=== PATIENT | male | born 1940 | race Caucasian/White ===

== ENCOUNTER 2019-10-25 12:05 | Observation (INO) | payer MEDICARE, BC ==
[~2019-10-25] VITALS: Ht 182.9 cm; Wt 80.0 kg
[2019-10-25] MEDS ORDERED: TOPROL XL50 MG PO (12:23)
[2019-10-25] MEDS ORDERED: NORVASC5 MG PO (12:24)
[2019-10-25] MEDS ORDERED: ZANAFLEX2 M1 PO (12:24)
[2019-10-25 12:33] LABS: BASOPHILS 0 % (0-2); EOSINOPHILS 0 % (0-7); HEMATOCRIT 38.3 % (42.0-54.0); HEMOGLOBIN 12.8 g/dL (13.5-17.5); IMMATURE GRANULOCYTES 0.3 % (0-5); LYMPHOCYTES 10.3 % (15-50); MCH 30.7 pg (26.0-34.0); MCHC 33.4 g/dL (31.0-37.0); MCV 91.8 fL (80.0-100.0); MEAN PLATELET VOLUME 10.2 fL (7.4-10.4); MONOCYTES 7.9 % (2-11); NEUTROPHILS 81.5 % (40-80); RBC 4.17 10x6/uL (4.20-6.10); RDW 13.4 % (11.5-14.5)
[2019-10-25 12:35] LABS: PLATELET COUNT 252 10x3/uL (130-400)
[2019-10-25 12:45] LABS: APTT 28.4 SECONDS (22.8-39.4); INR 1.08 (0.85-1.17); PROTIME 13.9 SECONDS (11.6-15.0)
[2019-10-25 12:56] LABS: CALC OSMOLALITY 268 mosm/kg (275-300); CALCIUM 8.6 mg/dL (8.5-10.1); CARBON DIOXIDE 25.2 mmol/L (21.0-32.0); CHLORIDE - SERUM 101 mmol/L (98-107); GLUCOSE 106 mg/dL (74-106); SODIUM 133 mmol/L (136-145); UREA NITROGEN 22 mg/dL (7-18); eGFR NON AFRICAN AMERICAN 76 mL/min (90-120)
--- NOTE | 2019-10-25 12:58 | NUR ---
REPORT TO MARJ KEBEDE
[2019-10-25 13:03] LABS: ALBUMIN 3.7 g/dL (3.4-5.0); ALKALINE PHOSPHATASE 57 U/L (30-120); ALT (SGPT) 21 U/L (10-68); BILIRUBIN - TOTAL 0.31 mg/dL (0.2-1.3); CKMB 1.6 U/L (0.0-3.6); CREATINE KINASE 66 UL (21-232); MAGNESIUM - SERUM 2.1 mg/dL (1.8-2.4); PROTEIN - SERUM 6.8 g/dL (6.4-8.2); THYROID STIMULATING HORMONE 1.45 uIU/mL (0.36-3.74); TROPONIN-I < 0.017 ng/mL (0.000-0.060)
[2019-10-25 13:44] VITALS: BP 164/74
[2019-10-25 15:08] VITALS: BP 166/75
--- NOTE | 2019-10-25 15:59 | NUR ---
ULTRASOUND AT BEDSIDE
--- NOTE | 2019-10-25 16:50 | NUR ---
ATTEMPTED TO CALL REPORT ON HOLD FOR 20 MINUTES.
[2019-10-25 16:55] VITALS: BP 161/72
--- NOTE | 2019-10-25 18:45 | NUR ---
PATIENT IN BED WITH IV INTACT. NO COMPLAINTS OR SIGNS OF DISTRESS. FAMILY AT BEDSIDE. CALL LIGHT WITHIN REACH.
[2019-10-25 18:51] VITALS: BP 166/70; Ht 182.9 cm; Wt 80.0 kg
[2019-10-25 20:00] VITALS: BP 112/62
--- NOTE | 2019-10-25 20:00 | NUR ---
PATIENT RESTING IN BED WITH DAUGHTER AT BEDSIDE. NO S/S OF ACUTE DISTRESS. NO C/O AT THIS TIME. PATIENT HAS A LEFT FOREARM, SALINE LOC. IV IS PATENT WITHOUT REDNESS, SWELLING, OR TENDERNESS. PATIENT IS UP WITH ASSISTANCE AND CANE. CALL LIGHT WITHIN REACH. WILL CONTINUE TO MONITOR.
[2019-10-26] VITALS: BP 111/57
[2019-10-26 04:00] VITALS: BP 141/64
--- NOTE | 2019-10-26 04:37 | NUR ---
I have reviewed this patient and I concur with the Shift Assessment completed by the Licensed Practical Nurse today this shift.
[2019-10-26 04:58] LABS: BASOPHILS 0 % (0-2); EOSINOPHILS 0.1 % (0-7); HEMATOCRIT 35.7 % (42.0-54.0); HEMOGLOBIN 11.6 g/dL (13.5-17.5); IMMATURE GRANULOCYTES 0.5 % (0-5); LYMPHOCYTES 21.5 % (15-50); MCH 30.4 pg (26.0-34.0); MCHC 32.5 g/dL (31.0-37.0); MCV 93.5 fL (80.0-100.0); MEAN PLATELET VOLUME 10.1 fL (7.4-10.4); MONOCYTES 10.6 % (2-11); NEUTROPHILS 67.3 % (40-80); PLATELET COUNT 262 10x3/uL (130-400); RBC 3.82 10x6/uL (4.20-6.10); RDW 13.7 % (11.5-14.5)
[2019-10-26 05:00] LABS: WBC 8.3 10x3/uL (4.8-10.8)
[2019-10-26 05:22] LABS: ALBUMIN 3.1 g/dL (3.4-5.0); ALKALINE PHOSPHATASE 46 U/L (30-120); ALT (SGPT) 16 U/L (10-68); BILIRUBIN - TOTAL 0.24 mg/dL (0.2-1.3); CALC OSMOLALITY 271 mosm/kg (275-300); CALCIUM 7.9 mg/dL (8.5-10.1); CARBON DIOXIDE 27.6 mmol/L (21.0-32.0); CHLORIDE - SERUM 102 mmol/L (98-107); CKMB 0.9 U/L (0.0-3.6); CREATINE KINASE 41 UL (21-232); GLUCOSE 96 mg/dL (74-106); POTASSIUM - SERUM 4.2 mmol/L (3.5-5.1); PROTEIN - SERUM 5.7 g/dL (6.4-8.2); SODIUM 134 mmol/L (136-145); TROPONIN-I < 0.017 ng/mL (0.000-0.060); UREA NITROGEN 23 mg/dL (7-18); eGFR NON AFRICAN AMERICAN 76 mL/min (90-120)
--- NOTE | 2019-10-26 08:46 | NUR ---
URINE COLLECTED AND TAKEN TO LAB.
[2019-10-26 09:45] VITALS: BP 177/87
[2019-10-26 10:07] LABS: BILIRUBIN NEGATIVE (NEGATIVE); KETONE NEGATIVE (NEGATIVE); NITRITE NEGATIVE (NEGATIVE); UROBILINOGEN NORMAL (NORMAL)
[2019-10-26 12:15] LABS: CHOL - HDL RATIO 3.4 ratio (2.3-4.9); LDL-HDL RATIO 2.2 ratio (1.5-3.5)
[2019-10-26 12:54] VITALS: BP 148/71
[2019-10-26] MEDS ORDERED: LIPITOR20 MG PO (13:01)
[2019-10-26] MEDS ORDERED: ASPIRIN325 MG PO (13:01)
[2019-10-26] MEDS ORDERED: PROTONIX40 MG PO (14:38)
--- NOTE | 2019-10-26 16:14 | NUR ---
PATIENT RECIEVED DC INSTRUCTIONS. VERBALIZED UNDERSTANDING. NO QUESTIONS AT THIS. IV REMOVED WITH CATH TIP INTACT. TOLERATED WITH NO PAIN. FAMILY AT BEDSIDE. CALL LIGHT WITHIN REACH.
== END 2019-10-26 14:35 | disposition home or self-care (01) ==
LOC: D.ER 12:05 → D.MS 14:58 → OBSVTIME 14:58 → D.MS 14:58
PROVIDERS: Emergency Medicine; Family Medicine; ADMIT Family Medicine; ATTEND Family Medicine
DX: G45.9 Transient cerebral ischemic attack, unspecified (principal); R20.0 Anesthesia of skin; I10 Essential (primary) hypertension; E87.1 Hypo-osmolality and hyponatremia

== ENCOUNTER → 2020-04-29 18:21 | Outpatient (CLI) | payer MEDICARE, BC ==
[2019-10-25 18:51] VITALS: BMI 23.9
[~2020-04-29 18:21] MED LIST: ASPIRIN325 MG PO; LIPITOR20 MG PO; NORVASC5 MG PO; PROTONIX40 MG PO; TOPROL XL50 MG PO; ZANAFLEX2 M1 PO
[2020-04-29 22:18] LABS: CHOL - HDL RATIO 2.2 ratio (2.3-4.9)
== END | disposition home or self-care (01) ==
LOC: D.LABREF 18:21
PROVIDERS: ATTEND Nurse Practitioner
DX: E78.5 Hyperlipidemia, unspecified (principal)

== ENCOUNTER → 2020-05-06 10:51 | Outpatient (CLI) | payer MEDICARE, BC ==
[2019-10-25 18:51] VITALS: BMI 23.9
== END | disposition home or self-care (01) ==
LOC: D.US 10:30
PROVIDERS: ATTEND Internal Medicine Cardiovascular Disease
DX: G45.9 Transient cerebral ischemic attack, unspecified (principal)